=== PATIENT | male | born 1995 | race Caucasian/White ===

== ENCOUNTER 2024-09-05 08:42 | Inpatient (IN) | payer BC, SELFPAY ==
[2024-09-05] VITALS (10 sets, daily range): BP systolic 115–151; BP diastolic 62–97; BMI 31.4
[2024-09-05 03:07] LABS: % Basophils 0.3 % (0-2); % Eosinophils 0.8 % (0-6); % Immature Granulocytes 0.6 % (0-0.5); % Lymphocytes 9.3 % (20.5-51.1); % Monocytes 6.4 % (1.7-9.3); % Neutrophils 82.6 % (42.2-75.2); Absolute Basophils 0.1 10^3/uL (0-0.2); Absolute Eosinophils 0.1 10^3/uL (0-0.7); Absolute Immature Granulocytes 0.1 10^3/uL (0-0.05); Absolute Lymphocytes 1.6 10^3/uL (1.2-3.4); Absolute Monocytes 1.1 10^3/uL (0.1-0.6); Absolute Neutrophils 14.6 10^3/uL (1.4-6.5); Hemoglobin 15.5 g/dL (13.0-18.0); Mean Corpuscular Volume 80.4 fL (80.0-94.0); Mean Platelet Volume 10.2 fL (7.4-10.4); Nucleated Red Blood Cells % 0 % (-); Platelet Count 265 10^3/uL (130-400); Red Blood Cell Count 5.35 10^6/uL (4.70-6.10); Red Cell Dist. Width 11.9 % (11.5-14.5); White Blood Cell Count 17.6 10^3/uL (4.8-10.8)
[2024-09-05 03:38] LABS: ALT (SGPT) 23 U/L (0-50); AST (SGOT) 24 U/L (17-59); Albumin 4.9 g/dl (3.5-5.0); Alkaline Phosphatase 65 U/L (38-126); Blood Urea Nitrogen 17 mg/dl (9-20); Calcium 10.1 mg/dl (8.4-10.2); Carbon Dioxide 27 mmol/L (22-30); Chloride 99 mmol/L (98-107); Glucose 134 mg/dl (70-99); Potassium 4.5 mmol/L (3.5-5.1); Sodium 140 mmol/L (135-145); Total Bilirubin 0.9 mg/dl (0.2-1.3); Total Protein 7.7 g/dl (6.3-8.2); eGFR > 60.00
--- NOTE | 2024-09-05 04:07 | ED.GENMED ---
Addendum entered and electronically signed by Surya Calderon DO 09/05/24 06:02:
CT reviewed with the [facility] positive appendicitis patient updated message sent to on-call general surgery and house provider
Original Note:
History of Present Illness
General
Chief Complaint: Abdominal Pain
Source: patient
Exam Limitations: none
Time Seen by Provider: 09/05/24 03:52
Nursing documentation reviewed up to this point in time: agreed with
History of Present Illness
History of Present Illness:
29-year-old male no prior abdominal surgery social drinker not to excess non-smoker presents with abdominal pain and bloating started around 6 PM after dinner to worsen through the night, is in the lower abdomen right greater than left, no fevers
feels a bit nauseous not much of an appetite no prior episodes no testicular pain no flank pain no hematuria
Past History
Past History
ED Past Medical History: None
ED Past Surgical History: Orthopedic
Social History
Tobacco: Non-smoker
Alcohol: Occasional
Drug: None
Personal:
Living: with family
Employment: Employed
Review of Systems
Review of Systems
All Other Systems: Not applicable
Constitutional: Denies fever or fatigue
EENT: Reports no symptoms
Respiratory: Reports no symptoms
ABD/GI: Reports abdominal pain, nausea and anorexia
: Denies dysuria or incontinence
Phy Exam
Physical Exam
Physical Exam:
Physical Exam
General: 29-year-old male looks uncomfortable but not
Neck: No jaundice
Heart: s1/s2 regular rate and rhythm, no murmur. equal radial pulses.
Lungs: no acute respiratory distress. clear bilaterally
Abdomen: Tender in the right lower abdomen
Neuro: alert and oriented. no focal neurological deficits
Skin: no rash
Psychiatric: well kept. interactive and cooperative
Extremities: no edema.
Course
Orders/Labs/Results
Orders:
Orders
09/05/24 03:01
CMP [Comprehensive Metabolic Panel] Urgent
Complete Blood Count/With Diff Urgent
09/05/24 04:04
CT Abd/Pel (IV only)-DH only Urgent
Comment:
Reason For Exam: rlq pain
0.9% Sodium Chloride 1000 ml [Nss] 1,000 ml IV BOLUS
HYDROmorphone [Dilaudid] 0.5 mg IV NOW STA
Ondansetron Injectable [Zofran] 4 mg IV NOW STA
Abnormal Lab Results
09/05/24
03:01
WBC 17.6 H 10^3/uL
(4.8-10.8)
Abs Immat Gran (auto) 0.1 H 10^3/uL
(0-0.05)
Absolute Neuts (auto) 14.6 H 10^3/uL
(1.4-6.5)
Absolute Monos (auto) 1.1 H 10^3/uL
(0.1-0.6)
Immature Gran % 0.6 H %
(0-0.5)
Neutrophils % 82.6 H %
(42.2-75.2)
Lymphocytes % 9.3 L %
(20.5-51.1)
Glucose 134 H mg/dl
(70-99)
09/05/24 03:01
09/05/24 03:01
Vital Signs
Initial and Last Documented VS:
Initial Vital Signs
Temp Pulse Resp BP Pulse Ox
99.1 F 74 17 151/97 100
09/05/24 02:50 09/05/24 02:50 09/05/24 02:50 09/05/24 02:50 09/05/24 02:50
Last Documented Vital Signs
Temp Pulse Resp BP Pulse Ox
99.1 F 74 17 151/97 100
09/05/24 02:50 09/05/24 02:50 09/05/24 02:50 09/05/24 02:50 09/05/24 02:50
MDM/Problems Addressed
Differential Diagnosis Includes:
Appendicitis diverticulitis renal colic
MDM/Problems Addressed:
Right lower quadrant pain
*Radiology
Radiology exam reviewed: radiology read reviewed
*Pulse Oximetry
Patient hypoxic: no
*Critical Care Note
Total Time (30-74mins, 75-104mins- exclusive of procedures): Not Applicable
ED Attending Note
-
Portions of this chart may have been created with voice recognition software.� Occasional wrong word or��sound alike� substitutions may have occurred due to the inherent limitations of voice recognition software.
Discharge Plan
Interventions
Interventions:
*Risk Screen - Suicide Last Done: 09/05/24 02:50
*General Assessment Last Done: 09/05/24 03:56
*Neglect/Abuse Screening Last Done: 09/05/24 03:56
ED- Fall Risk Assessment Last Done: 09/05/24 03:56
*ED COVID-19 Vaccine History Last Done: 09/05/24 03:56
PY-Ghcgre-Znggwfdlyc Assessment Last Done: 09/05/24 03:56
Discharge Date and Time
Print Language: [place]
[2024-09-05] MEDS: NSS 1000 IV ×2 (04:15→06:52)
[2024-09-05] MEDS: ZOFRAN 4 MG IV ×2 (04:15→14:30)
[2024-09-05] MEDS: DILAUDID 0.5 MG IV (04:16)
--- NOTE | 2024-09-05 06:00 | ED.GENMED ---
History of Present Illness
General
Chief Complaint: Abdominal Pain
Time Seen by Provider: 09/05/24 03:52
Past History
Past History
ED Past Medical History: None
ED Past Surgical History: Orthopedic
Social History
Tobacco: Non-smoker
Alcohol: Occasional
Drug: None
Personal:
Living: with family
Employment: Employed
Course
Orders/Labs/Results
Orders:
Orders
09/05/24 03:01
CMP [Comprehensive Metabolic Panel] Urgent
Complete Blood Count/With Diff Urgent
09/05/24 04:04
CT Abd/Pel (IV only)-[facility] only Urgent
Comment:
Reason For Exam: rlq pain
0.9% Sodium Chloride 1000 ml [Nss] 1,000 ml IV BOLUS
HYDROmorphone [Dilaudid] 0.5 mg IV NOW STA
Ondansetron Injectable [Zofran] 4 mg IV NOW STA
Abnormal Lab Results
09/05/24
03:01
WBC 17.6 H 10^3/uL
(4.8-10.8)
Abs Immat Gran (auto) 0.1 H 10^3/uL
(0-0.05)
Absolute Neuts (auto) 14.6 H 10^3/uL
(1.4-6.5)
Absolute Monos (auto) 1.1 H 10^3/uL
(0.1-0.6)
Immature Gran % 0.6 H %
(0-0.5)
Neutrophils % 82.6 H %
(42.2-75.2)
Lymphocytes % 9.3 L %
(20.5-51.1)
Glucose 134 H mg/dl
(70-99)
09/05/24 03:01
09/05/24 03:01
Vital Signs
Initial and Last Documented VS:
Initial Vital Signs
Temp Pulse Resp BP Pulse Ox
99.1 F 74 17 151/97 100
09/05/24 02:50 09/05/24 02:50 09/05/24 02:50 09/05/24 02:50 09/05/24 02:50
Last Documented Vital Signs
Temp Pulse Resp BP Pulse Ox
99.1 F 74 17 151/97 100
09/05/24 02:50 09/05/24 02:50 09/05/24 02:50 09/05/24 02:50 09/05/24 02:50
Update Note
Update Note:
Update reviewed with radiology positive appendicitis patient updated message sent to on-call general surgery in-house provider
ED Attending Note
-
Portions of this chart may have been created with voice recognition software.� Occasional wrong word or��sound alike� substitutions may have occurred due to the inherent limitations of voice recognition software.
Discharge Plan
Departure
Patient Disposition: Admit
Date of Disposition: 09/05/24
Time of Disposition: 06:01
Presentation/result/management discussed w/ accepting MD/DO: GS
Patient with high blood pressure during this ER visit?: No
Condition: Good
Covid-19: Not Applicable
Discharge Problem:
Acute appendicitis
Referrals:
Meagan Starkey PA [Family Provider] -
Interventions
Interventions:
*Risk Screen - Suicide Last Done: 09/05/24 02:50
*General Assessment Last Done: 09/05/24 03:56
*Neglect/Abuse Screening Last Done: 09/05/24 03:56
ED- Fall Risk Assessment Last Done: 09/05/24 03:56
*ED COVID-19 Vaccine History Last Done: 09/05/24 03:56
BB-Pjcqkx-Zyedowllmn Assessment Last Done: 09/05/24 03:56
Discharge Date and Time
Print Language: [place]
--- NOTE | 2024-09-05 06:48 | HPS.HSE ---
Family Physician
-
Family Physician: Meagan Starkey
Chief Complaint
-
'abdomen pain'
History of Present Illness
29 y/o patient presents to ER with the c/o abdomen pain started at umbilical area radiated slightly towards the right side of the abdomen after dinner around 6 PM. patient reports dull to sharp pain was associated with nausea and some chill but
denies noticing any fever. Pain worsened overnight with poor appetite. voiding with out difficulty. no blood noted. Denies any chest pain or shortness of breath.
Medical History
Past Medical History
Past Medical History: Reports None
Additional Past Medical History:
seasonal allergies
Past Surgical History: Reports Orthopedic
Social History
Tobacco: Non-smoker
Alcohol: Occasional
Drug: None
Living: With Family
Family History
Family History: Not pertinent
Allergies / Home Medications
Allergies reflects when Allergies were last updated in [facility].
Home Medications with original date entered in [facility]
Allergy/Medication List:
Allergies
Allergy/AdvReac Type Severity Reaction Status Date / Time
seasonal Allergy Unknown Uncoded 09/05/24 02:50
Review of Systems
-
History Source: Patient
A 12 point ROS was completed and negative except as noted: Yes
Constitutional: Reports No Symptoms
EENT: Reports No Symptoms
Respiratory: Reports No Symptoms
Cardiac: Reports No Symptoms
Abdomen/GI: Reports Abdominal Pain ('umbilical area, radiates to right side of the abdomen' ) and Nausea
: Reports No Symptoms
Musculoskeletal: Reports No Symptoms
Skin: Reports No Symptoms
Neurological: Reports No Symptoms
Endocrine: Reports No Symptoms
Hematologic/Lymphatic: Reports No Symptoms
Psych: Reports No Symptoms
Physical Exam
Vital Signs
Vital Signs
Temp Pulse Resp BP Pulse Ox
99.1 F 74 17 151/97 100
09/05/24 02:50 09/05/24 02:50 09/05/24 02:50 09/05/24 02:50 09/05/24 02:50
Physical Exam
General: Well Developed, Well Nourished and No Apparent Distress
HEENT: NormoCephalic, Moist mucous membranes and Atraumatic
Respiratory: Clear and Non Labored Respirations
Cardiac: S1/S2 and Regular Rhythm
Breast: Deferred by me
GI: Soft, Non Distended, Normal Bowel Sounds and Tender (Tender at right side> left side.); No Organomegaly
Rectal: Deferred by Provider
Genito-urinary: Deferred by me
Musculoskeletal: No Edema and Normal Gait & Station
Skin: Warm and Dry
Neuro: Awake, AO x 3 and Nonfocal/grossly intact
Hematologic/Lymphatic: No Lymphadenopathy
Psych: Calm and Intact Judgment/Insight
Laboratory Results
-
09/05/24 03:01
09/05/24 03:01
Laboratory Results
Total Bilirubin 0.9 mg/dl (0.2-1.3) 09/05/24 03:01
AST 24 U/L (17-59) 09/05/24 03:01
ALT 23 U/L (0-50) 09/05/24 03:01
Alkaline Phosphatase 65 U/L (38-126) 09/05/24 03:01
Data Reviewed
-
CT Scan: Report Reviewed by me
Lab Data: Labs Reviewed by me
Impression/Plan
-
29 year old patient with abdomen pain
# Abdomen likely due to Acute appendicitis
- CT abd/pelvis: Acute appendicitis, surrounding inflammatory stranding; no abscess or evidence of perforation
- WBC 17.6
- Continue Zosyn
- Continue IV Toradol, IV Dilaudid for pain management
-Continue IV Zofran for nausea
-NPO
- Admit to Dr. Carmona
# Seasonal allergies
- takes OTC Pseudafed
DVT Prophylaxis: SCD's
Full Code
[2024-09-05] MEDS: ZOSYN 50 IV (06:49)
--- NOTE | 2024-09-05 09:06 | HPS.HSE ---
Family Physician
-
Family Physician: Meagan Starkey
Chief Complaint
-
RLQ abdominal pain
History of Present Illness
Patient is a 29 yo M with no pertinent PMH who presents with less than 24 hours of RLQ abdominal pain. Saeed states that his pain began acutely yesterday evening at approximately 6 PM. He describes a sharp RLQ abdominal pain which persisted
prompting presentation to the ED. No nausea or vomiting. Low-grade fevers, no chills. No fluctuations or issues from a GI or urinary standpoint. No chronic GI issues. No personal or family history of IBD or colon cancer. Currently states that
his pain is improved, but not completely resolved.
Medical History
Past Medical History
Past Medical History: Reports None
Past Surgical History: Reports None
Social History
Tobacco: Non-smoker
Alcohol: Occasional
Drug: None
Personal:
Living: With Family
Employment: Employed
Family History
Family History: Not pertinent
Allergies / Home Medications
Allergies reflects when Allergies were last updated in [facility].
Home Medications with original date entered in [facility]
Allergy/Medication List:
NKDA
Review of Systems
-
A 12 point ROS was completed and negative except as noted: Yes
Physical Exam
Vital Signs
Vital Signs
Temp Pulse Resp BP Pulse Ox
99.1 F 74 16 117/70 98
09/05/24 02:50 09/05/24 06:57 09/05/24 06:57 09/05/24 06:57 09/05/24 06:57
Physical Exam
General: Well Developed, Well Nourished and No Apparent Distress
HEENT: NormoCephalic and Anicteric
Respiratory: Non Labored Respirations
Cardiac: Regular Rhythm
GI: Soft, Non Distended, Tender (RLQ) and Other (Nonperitoneal (no rebound or guarding))
Musculoskeletal: No Edema
Skin: Warm and Dry
Neuro: Nonfocal/grossly intact
Laboratory Results
-
09/05/24 03:01
09/05/24 03:01
Laboratory Results
Total Bilirubin 0.9 mg/dl (0.2-1.3) 09/05/24 03:01
AST 24 U/L (17-59) 09/05/24 03:01
ALT 23 U/L (0-50) 09/05/24 03:01
Alkaline Phosphatase 65 U/L (38-126) 09/05/24 03:01
Data Reviewed
-
CT Scan: Image Personally Visualized and interpreted and Report Reviewed by me
Lab Data: Labs Reviewed by me
Impression/Plan
-
IMPRESSION:
Patient is a 29 yo M p/w acute appendicitis
The natural history and pathophysiology of appendicitis was discussed. Anatomy was reviewed. CT scan imaging as relates to his appendix was reviewed. Options for management including medical management with antibiotics versus surgical management
with appendectomy were considered and discussed. The pros and cons of both approaches was discussed. Specifically, we discussed failure medical management of future episodes of appendicitis versus surgical risks. Patient would like to proceed
with appendectomy.
Plan for a laparoscopic appendectomy. The procedure itself, as well as the risks, benefits, and alternatives was discussed. Specifically, we discussed the risks of bleeding, infection, injury to surrounding structures (bowel, bladder), staple line
leak, need for open procedure. Typical postprocedure recovery including pain management and the need for 2 weeks no heavy lifting or strenuous activities was discussed. All questions answered. Consent signed.
PLAN:
-- Laparoscopic appendectomy
-- NPO, IVF
-- Antibiotics: Zosyn
-- Pain control: Tylenol and IV Dilaudid as needed
--- NOTE | 2024-09-05 09:12 | W.SUR.PREOP ---
Pre-Operative Surgical Note
-
I have examined this patient prior to the performance of the scheduled procedure.
The patient's condition is unchanged from the time of the current History and
Physical and the patient is able to undergo the scheduled procedure.
--- NOTE | 2024-09-05 13:02 | W.IMMPOSTOP ---
Surgical Immed Post Op Note
-
Primary Surgeon: Kristine
Assisting Surgeon: None
Pre-op Diagnosis: Acute appendicitis
Post-op Diagnosis: Acute appendicitis
Procedure Performed: Laparoscopic appendectomy
Anesthesia Type: General
Specimen / Cultures:
1. Appendix
Estimated Blood Loss: 3 cc
Complications: None
Operative Findings:
1. Acutely inflamed and dilated appendix, no evidence of perforation, serous reactive fluid within pelvis
2. Mesentery taken with Lornat, base with vang load stapler
== END 2024-09-05 14:34 | disposition home or self-care (01) | DRG 399 ==
LOC: PACUI 08:42
PROVIDERS: ADMITTING PHYSICIAN Surgery; EMERGENCY PHYSICIAN Emergency Medicine; FAMILY PHYSICIAN Physician Assistant Medical
PROC: 0DTJ4ZZ Resection of Appendix, Percutaneous Endoscopic Approach (ICD-10-PCS; 2024-09-05)
DX: K35.80 Unspecified acute appendicitis (principal); J30.2 Other seasonal allergic rhinitis
CPT/HCPCS: 88304; 74177; 80053; 85025; 96361; 96365; 96375; 99285; C1776; Q9967